=== PATIENT | female | born 1980 | race Caucasian/White ===

== ENCOUNTER 2022-06-26 21:01 | Emergency (ER) | payer MEDICAID, SELFPAY ==
[2022-06-26 21:03] VITALS: BP 162/116; PULSE 94; RESP 16; TEMP 37.3; O2SAT 100; BMI 34.7
[2022-06-26 21:06] VITALS: BP 162/116; PULSE 94; RESP 16; TEMP 37.3; O2SAT 100
[2022-06-26 21:24] VITALS: BP 162/116; PULSE 94; RESP 16; TEMP 37.3; O2SAT 100
--- NOTE | 2022-06-26 21:31 | EX.ED.DYSGE1 ---
HPI History of Present Illness Chief Complaint: Abscess Narrative Narrative: Patient presents with an abdominal wall abscess. She is not a diabetic. She has no fevers or chills she noticed developing cellulitis today. She thought it was an ingrown hair. She is denying any other symptoms. PFSH PFSH Home Medications dicyclomine 10 mg capsule 20 mg PO TIDAC PRN Pain ##14 01/10/16 [Rx Last Taken Unknown] ondansetron 4 mg disintegrating tablet 4 mg PO Q8H PRN PRN Nausea #10 tabs 01/10/16 [Rx Last Taken Unknown] oxycodone-acetaminophen 5 mg-325 mg tablet 1 - 2 tab PO Q4H PRN PRN Pain #12 tabs 01/10/16 [Rx Last Taken Unknown] cephalexin 500 mg capsule 500 mg PO Q6 #40 caps 06/26/22 [Rx Last Taken Unknown] hydrocodone-acetaminophen 5-325mg 5mg-325mg 1 tab PO Q6H PRN pain 3 days #12 tabs 06/26/22 [Rx Last Taken Unknown] sulfamethoxazole 800 mg-trimethoprim 160 mg tablet (Bactrim DS) 1 tab PO Q12H #20 tabs 06/26/22 [Rx Last Taken Unknown] Allergy/AdvReac Type Severity Reaction Status Date / Time No Known Allergies Allergy Verified 01/10/16 15:23 Social History Smoking Status: Current every day smoker ROS ROS ED ROS Narrative Past medical history: Reviewed Medications: Reviewed Social history: Noncontributory Review of systems: All systems negative except as indicated General: No fever Cardiovascular: No chest pain Respiratory: No shortness of breath or cough Gastrointestinal: Abdominal wall abscess and cellulitis Genitourinary: No dysuria Musculoskeletal: Denies myalgias no difficulty with ambulation Skin: As above Neurological: No memory loss, confusion or any focal weakness Psych: No recent behavioral changes Hematologic: No easy bleeding or easy bruising EXAM Physical Exam Narrative Exam Narrative: Physical exam General: Well nourished, Well developed, No Acute Distress she is hypertensive but she appears like she is in pain. Head: Normocephalic, Atraumatic Eyes: Conjunctiva not pale ENT: Moist mucous membranes Neck: Supple, Nontender, No lymphadenopathy Cardiovascular: Regular rate, Regular rhythm Respiratory: No distress, CTA bilaterally Abdomen: Soft, she is a pelvic region abscess which is about 6 cm in diameter there is overlying cellulitis of about 15 cm in diameter. This was demarcated. Back: Nontender, Normal Inspection. Negative for: CVA tenderness Extremities: Nontender, No edema Skin: As above Neurological: Alert, Normal Strength, Normal Sensation Psychological: Normal affect Const Vital Signs: 06/26/22 21:03 06/26/22 21:06 06/26/22 21:24 Temperature 99.2 F H 99.2 F H 99.2 F H Temperature Source Temporal Temporal Temporal Pulse Rate 94 94 94 Respiratory Rate 16 16 16 Blood Pressure 162/116 H 162/116 H 162/116 H Blood Pressure Mean 131 131 131 Pulse Ox 100 100 100 Oxygen Delivery Method Room Air Room Air Room Air MDM MDM MDM Narrative Medical decision making narrative: I&D was performed. Patient also has cellulitis I will give antibiotics and analgesics. I demarcated the cellulitis of the gets worse patient is to return. Procedures Other Procedures Procedure(s): Incision and drainage Verbal consent I used about 8 mL of 1% lidocaine 15. Blade was used. I ellipsed the wound. I used hemostats to break all the loculations. Packing was not used I irrigated Patient tolerated procedure well. Discharge Plan Triage Chief Complaint: Abscess ED Provider: Horace Michelle Dx/Rx/DC Orders Clinical Impression: Abscess, Cellulitis Instructions: Abscess Drainage Prescriptions: New sulfamethoxazole-trimethoprim [Bactrim DS] 800-160 mg tablet 1 tab PO Q12H Qty: 20 0RF cephalexin 500 mg capsule 500 mg PO Q6 Qty: 40 0RF hydrocodone-acetaminophen 5-325 mg tablet 1 tab PO Q6H PRN (Reason: pain) 3 Days Qty: 12 0RF No Action oxycodone-acetaminophen 1 TABLET tablet 1 - 2 tab PO Q4H PRN PRN (Reason: Pain) Qty: 12 0RF dicyclomine 10 MG capsule 20 mg PO TIDAC PRN (Reason: Pain) Qty: 14 0RF ondansetron 4 MG tablet 4 mg PO Q8H PRN PRN (Reason: Nausea) Qty: 10 0RF Primary Care Provider: Care Physician,No Primary Referrals: Care Physician,No Primary [Primary Care Provider] - 3-5 Days Disposition Disposition: Home, Self Care
[2022-06-26] MEDS: Smz/Tmp Ds Tablet 1 TABLET PO (21:38)
[2022-06-26] MEDS: oxyCODONE 5 MG Tablet PO (22:03)
[2022-06-26] MEDS: Clindamycin 600 MG/50 ML BAG 100 MG IV (22:41)
[2022-06-26 23:43] VITALS: BP 136/76; PULSE 79; RESP 16; O2SAT 99
== END 2022-06-26 23:44 | disposition home or self-care (01) ==
PROVIDERS: Emergency Provider Emergency Medicine; Visit Provider Emergency Medicine
DX: L02.211 Cutaneous abscess of abdominal wall (principal); L03.311 Cellulitis of abdominal wall; F17.200 Nicotine dependence, unspecified, uncomplicated
CPT/HCPCS: 96365; 99283; A4216

== ENCOUNTER → 2022-07-04 | Outpatient (CLI) | payer MEDICAID, SELFPAY ==
[2022-07-04 15:48] LABS: Absolute Lymphocyte Count 1.85 X10^3/uL (0.83-4.51); Absolute Neutrophil Count 3.5 X10^3/uL (2.0-7.7); Basophil# 0.04 X10^3/uL; Basophil% 0.7 % (0-1); Eosinophil# 0.16 X10^3/uL; Eosinophils% 2.7 % (0-5); Hematocrit 41.6 % (37-47); Hemoglobin 13.6 g/dL (12.0-15.0); Lymphocyte # 1.85 X10^3/ul (0.83-4.51); Lymphocyte % 30.9 % (19-41); Mean Corp Hgb Conc 32.7 g/dL (32-36); Mean Corpuscular Hgb 29.5 pg (27.0-32.0); Mean Corpuscular Volume 90.2 fL (81-99); Mean Platelet Vol. 10.3 fl (6.2-12.0); Monocyte# 0.45 X10^3/uL; Monocyte% 7.5 % (0-10); NRBC Flagged by Analyzer 0 % (0-5); Neutrophil # 3.46 X10^3/uL (2.7-7.7); Neutrophil % 57.7 % (47-70); Platelet Count 335 K/mm3 (150-450); RBC Distribution Width CV 12.9 % (11.6-14.6); RBC Distribution Width SD 42.6 fl (35.1-43.9); Red Blood Count 4.61 M/mm3 (4.2-5.4)
[2022-07-04 16:40] LABS: AST(SGOT) 10 U/L (15-37); Alanine Aminotransfer ALT/SGPT 21 U/L (13-56); Albumin, Serum 3.9 g/dL (3.2-5.0); Alkaline Phosphatase 54 U/L (45-117); Anion Gap 7 (5-15); BUN 8 mg/dL (7-18); BUN/Creat Ratio 9.5 RATIO (10-20); Calcium,Total 9.1 mg/dL (8.5-10.1); Chloride 106 mmol/L (98-107); Creatinine, Serum 0.84 mg/dL (0.55-1.02); EST Glomerular Filtration Rate 78 mL/min (>60); Est Glom Filt Rate - Afr Amer 95 mL/min (>60); Glucose 91 mg/dL (74-106); Potassium 3.8 mmol/L (3.5-5.1); Protein, Total 7.9 g/dL (6.4-8.2); Sodium Level 137 mmol/L (136-145)
== END | disposition home or self-care (01) ==
PROVIDERS: Visit Provider Nurse Practitioner Family
DX: N73.8 Other specified female pelvic inflammatory diseases (principal)
CPT/HCPCS: 36415; 80053; 85025

== ENCOUNTER → 2022-07-05 | Outpatient (CLI) | payer MEDICAID, SELFPAY | END | disposition home or self-care (01) | LOC: LABSPEC 16:55 | PROVIDERS: Visit Provider Surgery | DX: L02.91 Cutaneous abscess, unspecified (principal) | CPT/HCPCS: 87070; 87075; 87077; 87186; 87205 ==

== ENCOUNTER → 2022-10-27 | Outpatient (CLI) | payer MEDICAID, SELFPAY ==
[2022-10-27 13:22] LABS: Hematocrit 44.6 % (37-47); Hemoglobin 14.6 g/dL (12.0-15.0); Mean Corp Hgb Conc 32.7 g/dL (32-36); Mean Corpuscular Hgb 30.4 pg (27.0-32.0); Mean Corpuscular Volume 92.9 fL (81-99); Mean Platelet Vol. 10.8 fl (6.2-12.0); Platelet Count 312 K/mm3 (150-450); RBC Distribution Width CV 13.4 % (11.6-14.6); RBC Distribution Width SD 45.8 fl (35.1-43.9); White Blood Count 10.6 K/mm3 (4.4-11.0)
[2022-10-27 13:42] LABS: Hemoglobin A1c 5.1 % (3.8-5.6)
[2022-10-27 14:05] LABS: ALB/GLOB Ratio 0.9 RATIO (0.9-2.4); AST(SGOT) 10 U/L (15-37); Alanine Aminotransfer ALT/SGPT 22 U/L (13-56); Albumin, Serum 3.6 g/dL (3.2-5.0); Alkaline Phosphatase 65 U/L (45-117); Anion Gap 7 (5-15); BUN 8 mg/dL (7-18); BUN/Creat Ratio 11.1 RATIO (10-20); Calcium,Total 8.7 mg/dL (8.5-10.1); Chloride 107 mmol/L (98-107); Cholesterol 139 mg/dL (200); Creatinine, Serum 0.72 mg/dL (0.55-1.02); EST Glomerular Filtration Rate 94 mL/min (>60); Est Glom Filt Rate - Afr Amer 113 mL/min (>60); Glucose 83 mg/dL (74-106); High Density Lipoprotein 56 mg/dL; Potassium 3.8 mmol/L (3.5-5.1); Protein, Total 7.6 g/dL (6.4-8.2); Sodium Level 139 mmol/L (136-145); Thyroid Stim Hormone (TSH) 1.12 uIU/mL (0.358-3.74); Triglycerides 46 mg/dL; Very Low Density Lipoprotein 9 mg/dL (5-40)
== END | disposition home or self-care (01) ==
LOC: LAB 11:26
PROVIDERS: Visit Provider Nurse Practitioner Women's Health
DX: L65.9 Nonscarring hair loss, unspecified (principal); R03.0 Elevated blood-pressure reading, without diagnosis of hypertension
CPT/HCPCS: 36415; 80053; 80061; 83036; 84443; 85027

== ENCOUNTER → 2022-11-24 | Outpatient (CLI) | payer MEDICAID, SELFPAY ==
--- NOTE | 2022-11-24 14:06 | BI_ITS ---
MAMMOGRAPHY - BILATERAL SCREENING REASON FOR EXAM: Female, 42 years old. Routine annual screening examination. PERTINENT HISTORY: Grandmother with breast cancer. Aunts with breast cancer. TECHNIQUE: Digital bilateral breast dandy (3D mammographic acquisition) in the CC and MLO projections. 2-D mediolateral oblique (MLO) and craniocaudad (CC) views of both breasts were obtained. CAD: Full Field Digital Mammography with Computer Added Detection was performed. COMPARISON: None. Baseline examination. FINDINGS: Breast Composition: There are scattered areas of fibroglandular density. There are no dominant masses or suspicious calcifications. Prominent venous structures in the axillary region of the right breast. No other significant abnormalities are identified. BI/SCRN MAMM (CAD)W/DANDY BILAT IMPRESSION: Negative screening mammogram. Yearly followup mammogram recommended. (A) ASSESSMENT CATEGORY: BIRADS Category 2: Benign. A letter regarding these results will be sent to the patient by the facility within 30 days. Approximately 10% of breast cancers are not detected by mammography. A normal mammogram should not delay biopsy of a clinically suspicious abnormality. [id number] Electronically Signed: Jony Meehan MD at 15:24 EDT ,
== END | disposition home or self-care (01) ==
LOC: OPBI 14:05
PROVIDERS: Referring Provider Nurse Practitioner Women's Health; Visit Provider Nurse Practitioner Women's Health
DX: Z12.31 Encounter for screening mammogram for malignant neoplasm of breast (principal)
CPT/HCPCS: 77063; 77067

== ENCOUNTER 2023-05-10 11:33 | Emergency (ER) | payer BC, MEDICAID, SELFPAY ==
[2023-05-10 11:34] VITALS: BP 167/96; PULSE 77; RESP 16; TEMP 36.6; O2SAT 100; BMI 32.4
--- NOTE | 2023-05-10 12:22 | EKG12_ITS ---
Test Reason : CP/TIGHTNESS Blood Pressure : / mmHG Vent. Rate : 067 BPM Atrial Rate : 067 BPM P-R Int : 134 ms QRS Dur : 098 ms QT Int : 412 ms P-R-T Axes : 015 -11 010 degrees QTc Int : 435 ms Normal sinus rhythm Normal ECG Confirmed by CONRAD GARCIA, OLIVIA ([id number]), editorial writer DANIELLA DUKES ([id number]) on 05/15/2023 12:49:54 PM Referred By: UG/TL Confirmed By:MAYNOR MARTINES MD
--- NOTE | 2023-05-10 12:23 | EX.ED.DYSGE1 ---
HPI History of Present Illness Chief Complaint: Chest Pain Informant: patient Narrative Narrative: Presents for illness evaluation. Symptoms started 3 days ago states slight dizziness headache, following day had fevers with myalgias throughout. Vomiting diarrhea 2 days ago is resolved. Persistent fever. COVID vaccinated with 2 vaccines, no diagnosed COVID infections. No flu vaccines this year. History of hypertension on lisinopril. She had left upper extremity DVT years ago from previous med port for chronic pancreatitis. She was on anticoagulants at that time. No recent travel or surgeries. No family history of MIs at young age. Reports chest discomfort with deep breaths for 2 days now. No cardiac history. PFSH PFSH Home Medications dicyclomine 10 mg capsule 20 mg (2 x 10 mg) PO TIDAC PRN Pain #14 caps 01/10/16 [Rx Last Taken Unknown] ondansetron 4 mg disintegrating tablet 4 mg PO Q8H PRN PRN Nausea #10 tabs 01/10/16 [Rx Last Taken Unknown] oxycodone-acetaminophen 5 mg-325 mg tablet 1 - 2 tab PO Q4H PRN PRN Pain #12 tabs 01/10/16 [Rx Last Taken Unknown] hydrocodone-acetaminophen 5-325mg 5mg-325mg 1 tab PO Q6H PRN pain 3 days #12 tabs 06/26/22 [Rx Last Taken Unknown] doxycycline hyclate 100 mg capsule 100 mg PO BID #8 caps 07/06/22 [Rx Last Taken Unknown] Allergy/AdvReac Type Severity Reaction Status Date / Time No Known Allergies Allergy Verified 05/10/23 11:37 Social History Smoking Status: Current every day smoker tobacco type: cigarettes substance use type: does not use ROS ROS ED Constitutional Constitutional ED: Reports fever(s); Denies chills or sweats Eyes Eyes: Denies change in vision ENT ENT ED: Denies dysphagia or sore throat Cardiovascular Cardiovascular: Denies chest pain, leg edema, palpitations or racing heartbeat Respiratory/Chest Respiratory/Chest: Denies cough, dyspnea or dyspnea on exertion Gastrointestinal Gastrointestinal: Reports diarrhea and vomiting; Denies abdominal pain Genitourinary Genitourinary ED: Denies dysuria, hematuria or urinary frequency Musculoskeletal Musculoskeletal: Reports myalgias; Denies back pain, extremity pain or neck pain Integumentary Denies rash or wounds Neurologic Neurologic: Reports headache(s); Denies paresthesias or weakness EXAM Physical Exam Const Vital Signs: 05/10/23 11:34 05/10/23 12:20 05/10/23 13:00 Temperature 97.9 F Temperature Source Temporal Pulse Rate 77 Respiratory Rate 16 Respiratory Effort Normal Non-Labored Blood Pressure 167/96 H 166/88 H Blood Pressure Mean 119 114 Pulse Ox 100 Oxygen Delivery Method Room Air 05/10/23 14:00 Temperature Temperature Source Pulse Rate Respiratory Rate Respiratory Effort Blood Pressure 151/88 H Blood Pressure Mean 109 Pulse Ox Oxygen Delivery Method Positive well nourished and well developed Constitutional Narrative: Nontoxic General Appearance ED: well developed and NAD HEENT Reports moist mucous membranes normocephalic and atraumatic Eyes PERRL, EOMs intact bilaterally and conjunctivae normal General Eye ED: Yes normal appearance of both eyes Neck no lymphadenopathy and supple Neck Narrative: No mental this General: Negative for tenderness Chest Wall Chest: Negative for tenderness Resp normal respiratory effort and normal air movement Effort and Inspection: symmetric chest movement; Negative for respiratory distress Cardio regular rate, regular rhythm and no murmurs Peripheral Pulses: pulses 2+ throughout GI normal to inspection, nondistended, normoactive bowel sounds and non-tender Palpation: Negative for guarding or rebound tenderness present Back/Spine no CVA tenderness and no thoracic nor lumbar tenderness Extremity normal to inspection General Extremety ED: Negative for edema or tenderness General Extremity: Negative for edema Neuro oriented x3, CN's II-XII intact bilaterally and no sensory deficits noted Sensorium / Orientation: awake and alert Skin no rashes or lesions noted and no wounds MDM MDM MDM Narrative Medical decision making narrative: Interventions / MDM: Differential diagnosis: Chest pain, viral infection Diagnosis considered but do not suspect: ACS however cardiac enzymes negative. Pneumonia however x-ray negative. My EKG interpretation: Sinus rate of 67, no ST changes T wave versions leads III and aVF, no old for comparison. Imaging independently reviewed and interpreted by myself: 1 view chest x-ray: No acute process. External documents reviewed: N/A Test considered but not ordered:N/A ED course: Vital signs stable. Atypical chest pains. EKG cardiac work-up initiated. COVID flu also sent with her fever myalgias. Is given IV fluids. Afebrile in the ED. Cardiac work-up negative chest X neck COVID and flu also negative. Discussed viral syndrome with the patient. She will continue Tylenol ibuprofen as needed. Outpatient follow-up. Return precautions. In addition referred to PCP as she states she is reestablishing insurance. All questions were answered. Re-evaluation: stable Disposition discussed with patient/family/significant other: Patient Case discussed with consulting clinician: N/A This note was generated with [employer] dictation software. It may contain incorrect words, spelling, and punctuation that were not noted in checking the note before signing. Lab Data Attestation: I reviewed the patient's lab results. Labs: Laboratory Results - last 24 hr 05/10/23 12:08 WBC 8.0 RBC 4.68 Hgb 13.9 Hct 43.0 MCV 91.9 MCH 29.7 MCHC 32.3 RDW Std Deviation 46.0 H RDW Coeff of René 13.5 Plt Count 320 MPV 10.5 Immature Gran % (Auto) 0.500 Neut % (Auto) 70.9 H Lymph % (Auto) 20.4 [place] % (Auto) 5.0 Eos % (Auto) 2.5 Baso % (Auto) 0.7 Absolute Neuts (auto) 5.7 Absolute Lymphs (auto) 1.64 Nucleated RBC % 0 Sodium 139 Potassium 3.6 Chloride 108 H Carbon Dioxide 25.0 Anion Gap 6 BUN 6 L Creatinine 0.72 Estim Creat Clear Calc 88.79 Est GFR (MDRD) Af Amer 112 Est GFR (MDRD) Non-Af 93 BUN/Creatinine Ratio 8.3 L Glucose 103 Calcium 8.7 Troponin I High Sens 5 Radiography Diagnostic Testing: Clinical Impression(s) from Imaging Studies Chest X-Ray 05/10/23 12:40 IMPRESSION: No radiographic evidence of acute cardiopulmonary disease. Electronically Signed: Kwame Stein MD at 13:05 EDT , Discharge Plan Triage Chief Complaint: Chest Pain ED Provider: Loyd Blunt Dx/Rx/DC Orders Clinical Impression: Acute viral syndrome, Chest pain Instructions: ED Chest Pain, Uncertain Cause, ED Viral Syndrome (Adult) Prescriptions: No Action doxycycline hyclate 100 mg capsule 100 mg PO BID Qty: 8 0RF oxycodone-acetaminophen 1 TABLET tablet 1 - 2 tab PO Q4H PRN PRN (Reason: Pain) Qty: 12 0RF dicyclomine 10 MG capsule 20 mg PO TIDAC PRN (Reason: Pain) Qty: 14 0RF ondansetron 4 MG tablet 4 mg PO Q8H PRN PRN (Reason: Nausea) Qty: 10 0RF hydrocodone-acetaminophen 5-325 mg tablet 1 tab PO Q6H PRN (Reason: pain) 3 Days Qty: 12 0RF [facility] Referrals: Wallace Beckman MD [Med Staff - Generation Mechanic Helper] - 3-[facility] - Activity Restrictions/Additional Instructions: Chest x-ray negative. Cardiac work-up negative. COVID flu negative. Monitor symptoms. Use Tylenol or ibuprofen as needed. Follow-up as an outpatient. Return of any worsening symptoms. Disposition Disposition: Home, Self Care Discharge Date/Time: 05/10/23 14:17
[2023-05-10 12:39] LABS: Absolute Lymphocyte Count 1.64 X10^3/uL (0.83-4.51); Absolute Neutrophil Count 5.7 X10^3/uL (2.0-7.7); Basophil# 0.06 X10^3/uL; Basophil% 0.7 % (0-1); Eosinophils% 2.5 % (0-5); Hemoglobin 13.9 g/dL (12.0-15.0); Lymphocyte # 1.64 X10^3/ul (0.83-4.51); Lymphocyte % 20.4 % (19-41); Mean Corp Hgb Conc 32.3 g/dL (32-36); Mean Corpuscular Hgb 29.7 pg (27.0-32.0); Mean Corpuscular Volume 91.9 fL (81-99); Mean Platelet Vol. 10.5 fl (6.2-12.0); NRBC Flagged by Analyzer 0 % (0-5); Neutrophil # 5.68 X10^3/uL (2.7-7.7); Neutrophil % 70.9 % (47-70); Platelet Count 320 K/mm3 (150-450); RBC Distribution Width CV 13.5 % (11.6-14.6); Red Blood Count 4.68 M/mm3 (4.2-5.4)
--- NOTE | 2023-05-10 12:40 | RAD_ITS ---
INDICATION: chest pain EXAMINATION/TECHNIQUE: X-RAY - XR Chest 1 View COMPARISON: No relevant prior comparison study available FINDINGS: LINES/DEVICES: None. LUNGS: No consolidation, edema or effusion. No pneumothorax. MEDIASTINUM AND CARDIOVASCULAR STRUCTURES: Cardiac silhouette not enlarged. Central airways and mediastinal contour are unremarkable. BONES AND SOFT TISSUES: Unremarkable. RAD/Chest 1 View (Portable) IMPRESSION: No radiographic evidence of acute cardiopulmonary disease. Electronically Signed: Kwame Stein MD at 13:05 EDT ,
[2023-05-10 13:00] VITALS: BP 166/88
[2023-05-10 13:08] LABS: Anion Gap 6 (5-15); BUN 6 mg/dL (7-18); BUN/Creat Ratio 8.3 RATIO (10-20); Calcium,Total 8.7 mg/dL (8.5-10.1); Chloride 108 mmol/L (98-107); Creatinine, Serum 0.72 mg/dL (0.55-1.02); EST Glomerular Filtration Rate 93 mL/min (>60); Est Glom Filt Rate - Afr Amer 112 mL/min (>60); Estimated Creatinine Clearance 88.79 ml/min; Glucose 103 mg/dL (74-106); Potassium 3.6 mmol/L (3.5-5.1); Sodium Level 139 mmol/L (136-145); Troponin-I HS 5 pg/mL (3.0-54.0)
[2023-05-10] MEDS: 0.9% Normal Saline (1000mL) 1,000 ML 1000 ML IV (13:08)
[2023-05-10 14:00] VITALS: BP 151/88
== END 2023-05-10 14:17 | disposition home or self-care (01) ==
PROVIDERS: Emergency Provider Emergency Medicine; Visit Provider Emergency Medicine
DX: B34.9 Viral infection, unspecified (principal); R07.9 Chest pain, unspecified; Z11.52 Encounter for screening for COVID-19; R42 Dizziness and giddiness; R51.9 Headache, unspecified; R50.9 Fever, unspecified; I10 Essential (primary) hypertension; F17.210 Nicotine dependence, cigarettes, uncomplicated
CPT/HCPCS: 71045; 80048; 84484; 85025; 87428; 93005; 96360; 99284; J7030; A4216

== ENCOUNTER 2023-11-29 12:21 | Day surgery (SDC) | payer BC, SELFPAY ==
--- NOTE | 2023-11-29 12:29 | H&P.OPEN ---
HPI - General General Date of Service: 11/29/23 HPI Narrative HUGO UMANZOR, is a 43 F who presents for a screening colonoscopy. Patient never had previous colonoscopy. Patient does have secondary family history of colon cancer maternal grandfather, maternal uncle, maternal aunt?grandfather was in his 70s, uncle and aunt were 50s to 60s?patient's mom has had polyps?unsure of the size but not aware of anything larger than a centimeter., patient states she has bowel movements mostly daily and has occasional blood when wiping may be once every 3 to 6 months, denies known history of hemorrhoids. Patient denies any chronic abdominal pain/nausea/vomiting/reflux. [facility] Medical History (Updated 11/27/23 @ 15:50 by Demi Castillo) Anxiety Back pain Depression DVT (deep venous thrombosis) Family hx of colon cancer HTN (hypertension) Leg cramps Smoker Wears contact lenses Wears glasses Home Medications hydroxyzine HCl 25 mg tablet 25 mg PO BID PRN anxiety 11/09/23 [History Last Taken Unknown] lactobacillus combination no.4 3 billion cell capsule (Probiotic) 3,000 mmu cells PO DAILY 11/09/23 [History Last Taken Unknown] lisinopril 10 mg tablet 10 mg PO DAILY 11/09/23 [History Last Taken 11/29/23 07:30] sertraline 50 mg tablet 50 mg PO DAILY 11/09/23 [History Last Taken Unknown] Allergy/AdvReac Type Severity Reaction Status Date / Time No Known Allergies Allergy Verified 11/29/23 13:00 Family History (Updated 11/09/23 @ 10:35 by Gillian Osborne) Grandfather Colon cancer Aunt Colon cancer Uncle Colon cancer Mother Colon polyps Surgical History (Updated 11/27/23 @ 15:50 by Demi Castillo) History of back surgery History of laparoscopic cholecystectomy Hx of surgical procedure Hx of surgical procedure Social History (Updated 11/09/23 @ 10:39 by Gillian Osborne) household members: children current occupational status: employed Smoking Status: Current every day smoker tobacco type: e-cigarettes substance use type: does not use Past Medical/Surgical History Planned Operation Planned Operative Procedure/s: COLONOSCOPY-OA Previous Hospitalizations/Surgeries HX Hospitalizations: No Any Problems With Anesthesia: No You/Your Family Experience Fever (Hyperthermia) With Anes: No Cholinesterase deficiency: No Cardiovascular Hx of Irregular Heartbeat and/or Afib: No Hx Heart Attack: No Hx Congestive Heart Failure: No Hx Hypertension: No Hx Pacemaker: No Respiratory Hx Chronic Obstructive Pulmonary Disease (COPD): No Hx Asthma: No Hx Emphysema: No Hx Sleep Apnea: No Hx Respiratory Tract Infection/Cold (presently): No Do You Snore Loudly (louder than talking or can be heard): Yes Do You Often Feel Tired/ Fatigued/ Sleepy Dring Daytime?: No Has Anyone Observed You Stop Breathing During Sleep?: No Result (for STOP score): Negative Smoking Status: Current every day smoker Gastrointestinal Hx Ulcer: No Special diet followed at home: No Neurological Hx Seizures: No Hx Head/Neck Injury: No Hx Headaches: Yes Hx Back Injury/Pain: Yes Does patient have nerve stimulator: No Reproduction : No Allergies No Known Allergies Allergy (Verified 11/29/23 13:00) Discharge Is Pt Admitted From a Fpc, or a Skilled Nursing: No After D/C, Where Do you Plan to Go: Return Home Physical Exam Const alert, oriented x3 and no apparent distress HEENT normocephalic and head/scalp atraumatic Resp normal respiratory effort Cardio regular rate GI soft to palpation and non-tender; Negative for non-distended Palpation: Negative for guarding Extremity no clubbing, cyanosis or edema Skin no rashes or lesions noted Neuro CN's II-XII intact bilaterally Psych mental status grossly normal Assessment & Plan Assessment/Plan (1) Encounter for screening for malignant neoplasm of colon: Surgery Risks - Colonoscopy I discussed with the patient the risks of the procedure: Yes Risks Include but are not Limited To: Risks include but are not limited to: Bleeding, perforation requiring further surgery, inability to complete colonoscopy requiring barium enema.
[2023-11-29 12:53] LABS: Internal QC Validated? YES +Cl - CLEAR BKGD; Pregnancy, Urine Negative Negative
[2023-11-29 13:03] VITALS: BP 118/72; PULSE 70; RESP 16; TEMP 36.6; O2SAT 100; BMI 32.5
[2023-11-29] MEDS: Lactated Ringers 1,000 ML 15 ML IV (13:05)
[2023-11-29 13:56] VITALS: BP 107/77; BP 118/72; PULSE 63; RESP 16; TEMP 36.6; O2SAT 100
--- NOTE | 2023-11-29 13:59 | OP.COLON_ITS ---
Patient Name: Lynne Dawkins Procedure Date: 11/29/2023 1:35 PM Date of : 1980 Age: 43 Procedure: Colonoscopy Indications: Screening for colorectal malignant neoplasm Providers: Loan Merritt MD Referring MD: Anu Hayes [facility] Medicines: Monitored Anesthesia Care Patient Profile: This is a 43 year old female. Last Colonoscopy: none. The patient's first colonoscopy is today. Complications: No immediate complications. Procedure: Pre-Anesthesia Assessment: - Prior to the procedure, a History and Physical was performed, and patient medications and allergies were reviewed. The patient's tolerance of previous anesthesia was also reviewed. The risks and benefits of the procedure and the sedation options and risks were discussed with the patient. All questions were answered, and informed consent was obtained. Prior Anticoagulants: The patient has taken no anticoagulant or antiplatelet agents. ASA Grade Assessment: Per anesthesia. After reviewing the risks and benefits, the patient was deemed in satisfactory condition to undergo the procedure. After I obtained informed consent, the scope was passed under direct vision. Throughout the procedure, the patient's blood pressure, pulse, and oxygen saturations were monitored continuously. The colonoscope was introduced through the anus and advanced to the cecum, identified by appendiceal orifice and ileocecal valve. The colonoscopy was performed without difficulty. The patient tolerated the procedure well. The quality of the bowel preparation was good. Scope In: 1:40:40 PM Scope Withdrawal Time 0 hours 6 minutes 23 seconds Scope Out: 1:52:14 PM Total Procedure Duration Time 0 hours 11 minutes 34 seconds Findings: The perianal and digital rectal examinations were normal. The entire examined colon appeared normal on direct and retroflexion views. Impression: - The entire examined colon is normal on direct and retroflexion views. - No specimens collected. Recommendation: - Discharge patient to home. - Resume previous diet. - Continue present medications. - Repeat colonoscopy in 10 years for screening purposes. Procedure Code(s): --- Professional --- G0121, PT, Colorectal cancer screening; colonoscopy on individual not meeting criteria for high risk Diagnosis Code(s): --- Professional --- Z12.11, Encounter for screening for malignant neoplasm of colon CPT copyright 2021 [employer]. All rights reserved. The codes documented in this report are preliminary and upon spar machine operator helper review may be revised to meet current compliance requirements. MD Loan Weeks MD 11/29/2023 1:58:39 PM This report has been signed electronically. Number of Addenda: 0 Note Initiated On: 11/29/2023 1:35 PM
--- NOTE | 2023-11-29 13:59 | OP.CCLET_ITS ---
11/29/2023 Anu Hayes [facility] Re : Colonoscopy procedure for Lynne Lomeli [facility] This procedure was performed on November. My impressions and recommendations are as follows: Impressions : - The entire examined colon is normal on direct and retroflexion views. - No specimens collected. Recommendations : - Discharge patient to home. - Resume previous diet. - Continue present medications. - Repeat colonoscopy in 10 years for screening purposes. My findings are described in the full procedure note, which is enclosed. If I can be of further assistance, please feel free to contact me at Doctor phone number(s): , Work: . Sincerely, MD Loan Weeks MD 11/29/2023 1:58:39 PM This report has been signed electronically.
[2023-11-29 14:00] VITALS: BP 113/71; BP 118/72; PULSE 61; RESP 16; O2SAT 100
[2023-11-29 14:05] VITALS: BP 113/69; BP 118/72; PULSE 61; RESP 18; O2SAT 100
[2023-11-29 14:10] VITALS: BP 109/74; BP 118/72; PULSE 65; RESP 16; TEMP 36.7; O2SAT 100
[2023-11-29 14:30] VITALS: BP 118/72
== END 2023-11-29 14:30 | disposition home or self-care (01) ==
LOC: EN 12:22 → AC 12:24
PROVIDERS: Anesthesiology; Visit Provider Surgery
PROC: 0DJD8ZZ Inspection of Lower Intestinal Tract, Via Natural or Artificial Opening Endoscopic (ICD-10-PCS; CPT 45378; principal; 2023-11-29 13:40)
DX: Z12.11 Encounter for screening for malignant neoplasm of colon (principal); I10 Essential (primary) hypertension; F17.290 Nicotine dependence, other tobacco product, uncomplicated; Z80.0 Family history of malignant neoplasm of digestive organs; Z79.899 Other long term (current) drug therapy; Z90.49 Acquired absence of other specified parts of digestive tract
CPT/HCPCS: 45378; 81025; J7120; J2405

== ENCOUNTER → 2024-06-06 | Outpatient (CLI) | payer OTHER, SELFPAY | END | disposition home or self-care (01) | LOC: OPBI 09:03 | PROVIDERS: PCP Nurse Practitioner Family; Referring Provider Nurse Practitioner Family; Visit Provider Nurse Practitioner Family | DX: N63.23 Unspecified lump in the left breast, lower outer quadrant (principal) | CPT/HCPCS: 76642; 77062; 77066; G0279 ==